=== PATIENT | female | born 1980 | race African-American/Black ===

== ENCOUNTER 2017-06-26 09:46 | Emergency (ER) | payer OTHER ==
[2017-06-26] MEDS ORDERED: FAMOTIDINE 20 MG/50 ML IVPB 20 MG/50 ML MG IVPB ONE ×2 (09:58→10:07)
[2017-06-26] MEDS ORDERED: MAG HYDROX/AL HYDROX/SIMETH 30 ML UNIT-DOSE CUP PO ONE (09:58)
[2017-06-26] MEDS ORDERED: ONDANSETRON 4 MG/2 ML VIAL IVPB ONE (09:58)
--- NOTE | 2017-06-26 10:06 | PDOC ---
History of Present Illness - General Chief Complaint: Chest Pain Stated Complaint: CHEST PAIN SINCE YESTERDAY Time Seen by Provider: 06/26/17 09:57 - History of Present Illness Initial Comments: 06/26/17 10:03 37 F with no PMH presents to ER with chest pressure since last night. Pt states that she first noticed it around 8 or 9 PM. She initially ignored it, thinking it was gas. Pt went to bed, and when she awoke, the pain persisted. It is constant, non-radiating pain in the middle of her chest. She denies SOB but states that when she breathes deeply she feels it more. Not worsened with exertion. Pt states that it is also worse with bending forward and palpation of her stomach. Pt denies leg swelling. Denies OCP use. Denies recent travel/ immobilization. No h/o DVT/PE. No F/C/cough. Past History - Past Medical History Allergies/Adverse Reactions: Allergies Allergy/AdvReac Type Severity Reaction Status Date / Time No Known Drug Allergies Allergy Verified 06/26/17 09:52 Home Medications: Ambulatory Orders NK [No Known Home Medication] 06/26/17 Anemia: No Asthma: No Cancer: No Cardiac Disorders: No CVA: No COPD: No CHF: No Dementia: No Diabetes: No GI Disorders: Yes (ACID REFUX) Disorders: No HTN: No Hypercholesterolemia: No Liver Disease: No Seizures: No Thyroid Disease: No - Surgical History Abdominal Surgery: No Appendectomy: No Cardiac Surgery: No Cholecystectomy: No Lung Surgery: No Neurologic Surgery: No Orthopedic Surgery: No - Reproductive History (#): 5 Para: 1 Cervical CA: No Dysfunctional Uterine Bleeding: No Ectopic : No Endometrial CA: No Polycystic Ovaries: No Therapeutic (s) & number: No Tubal Ligation: No Spontaneous : 3 - Immunization History Immunization Up to Date: Yes - Suicide/Smoking/Psychosocial Hx Smoking Status: No Smoking History: Never smoked Years of Tobacco Use: 0 Have you smoked in the past 12 months: No Number of Cigarettes Smoked Daily: 0 Cigars Per Day: 0 Hx Alcohol Use: No Drug/Substance Use Hx: No Substance Use Type: None Hx Substance Use Treatment: No Cardiac Specific PMH - Complaint Specific PMHX Pacemaker: No Review of Systems - Review of Systems Comments:: 06/26/17 10:07 "GENERAL/CONSTITUTIONAL: No fever or chills. No weakness. HEAD, EYES, EARS, NOSE AND THROAT: No change in vision. No ear pain or discharge. No sore throat. CARDIOVASCULAR: + Chest pressure, no shortness of breath. RESPIRATORY: No cough, wheezing, or hemoptysis. GASTROINTESTINAL: No nausea, vomiting, diarrhea or constipation. GENITOURINARY: No dysuria, frequency, or change in urination. MUSCULOSKELETAL: No joint or muscle swelling or pain. No neck or back pain. SKIN: No rash NEUROLOGIC: No headache, vertigo, loss of consciousness, or change in strength/ sensation. ENDOCRINE: No increased thirst. No abnormal weight change. HEMATOLOGIC/LYMPHATIC: No anemia, easy bleeding, or history of blood clots. ALLERGIC/IMMUNOLOGIC: No hives or skin allergy. " *Physical Exam - Vital Signs Last Vital Signs Temp Pulse Resp BP Pulse Ox 98.5 F 64 16 109/77 98 06/26/17 09:47 06/26/17 10:30 06/26/17 10:30 06/26/17 10:30 06/26/17 10:30 - Physical Exam Comments: 06/26/17 10:07 "GENERAL: Awake, alert, and fully oriented, in no acute distress HEAD: No signs of trauma EYES: PERRLA, EOMI, sclera anicteric, conjunctiva clear ENT: Auricles normal inspection, hearing grossly normal, nares patent, oropharynx clear without exudates. Moist mucosa NECK: Nontender, no stepoffs, Normal ROM, supple, no lymphadenopathy, JVD, or masses LUNGS: Breath sounds equal, clear to auscultation bilaterally. No wheezes, and no crackles HEART: Regular rate and rhythm, normal S1 and S2, no murmurs, rubs or gallops ABDOMEN: + epigastric TTP. No guarding, no rebound. No masses EXTREMITIES: Normal range of motion, no edema. No clubbing or cyanosis. No cords, erythema, or tenderness NEUROLOGICAL: Cranial nerves II through XII intact. 5/5 strength and sensation in all extremities, Normal speech, normal gait SKIN: Warm, Dry, normal turgor, no rashes or lesions noted. " Heart Score/ECG Review - History History: Slightly suspicious - Electrocardiogram EKG: Normal - Age Age: </= 45 - Risk Factors Risk Factors Heart Score: Yes Positive family hx of cardiac disease Based on the list above the patient has:: 1-2 risk factors - Troponin Troponin: </= normal limit - Score Heart Score - Total: 1 - ECG Impressions Comment:: 06/26/17 10:14 NSR, no BEE/STDs, no TWIs, axis wnl, intervals wnl, rate 72 ED Treatment Course - LABORATORY CBC & Chemistry Diagram: 06/26/17 10:35 06/26/17 10:35 - ADDITIONAL ORDERS Additional order review: 06/26/17 10:35 RBC 4.00 MCV 87.1 MCHC 33.5 RDW 13.0 MPV 8.8 Neutrophils % 55.9 Lymphocytes % 37.1 Monocytes % 5.4 Eosinophils % 1.4 Basophils % 0.2 - RADIOLOGY Radiology Studies Ordered: Category Date Time Status CHEST PA & LAT [RAD] Stat Radiology 06/26/17 09:58 Completed - Medications Given in the ED: ED Medications Discontinued Medications Generic Name Dose Route Start Last Admin Trade Name Freq PRN Reason Stop Dose Admin Al Hydroxide/Mg Hydroxide 30 ml 06/26/17 09:58 06/26/17 10:17 Mylanta Oral Suspension - PO 06/26/17 09:59 30 ml ONCE ONE Administration Famotidine/Sodium Chloride 20 mg in 50 mls @ 100 mls/hr 06/26/17 09:58 10:13 Pepcid 20 Mg Premixed Ivpb - IVPB 06/26/17 10:27 100 mls/hr ONCE ONE Administration Ondansetron HCl 4 mg 06/26/17 09:58 06/26/17 10:18 Zofran Injection IVPB 06/26/17 09:59 4 mg ONCE ONE Administration Medical Decision Making - Medical Decision Making 06/26/17 10:08 37 F with chest pressure since last night. Exam notable for epigastric TTP. Possible gastritis vs GERD. ACS unlikely as pain is not exertional. PE unlikely as pt with no DVT/PE risk factors and normal vitals. PERC score 0. - Labs, trop - CXR - GI cocktail 06/26/17 12:36 Labs, EKG, CXR all wnl. Pt reassessed - feels somewhat better with GI meds. Pt well appearing, vitals normal, clinically stable for DC I discussed the physical exam findings, ancillary test results and final diagnoses with the patient. I answered all of the patient's questions. The patient was satisfied with the care received and felt comfortable with the discharge plan and treatment plan. The patient agrees to follow up with the primary care physician within 24-72 hours. *DC/Admit/Observation/Transfer Diagnosis at time of Disposition: Chest pain - Discharge Dispostion Disposition: HOME Condition at time of disposition: Stable - Referrals - Patient Instructions Printed Discharge Instructions: DI for Atypical Chest Pain Additional Instructions: You should follow up with a electrician station assistant as soon as possible to have your heart fully evaluated. Even though the tests today were normal, we cannot definitively rule out all heart disease. This is especially important given your family history of heart attacks. If you experience worsening chest pain, shortness of breath, or any other concerning symptoms, return to the ER immediately. Otherwise, follow up with your primary doctor within 1 week. - Post Discharge Activity - Attestations Physician Attestion: 06/26/17 12:36 I, Dr. Evelio Cope MD, attest that this document has been prepared under my direction and personally reviewed by me in its entirety. I further attest, that it accurately reflects all work, treatment, procedures and medical decision -making performed by me.
[2017-06-26 10:07] VITALS: TEMP 98.5; BMI 26.1
[2017-06-26] MEDS ORDERED: MAG HYDROX/AL HYDROX/SIMETH 30 ML UNIT-DOSE CUP ONE (10:07)
[2017-06-26] MEDS ORDERED: ONDANSETRON 4 MG/2 ML VIAL ONE (10:07)
[2017-06-26 10:55] LABS: BASO % 0.2 % (0-2.0); EOS % 1.4 % (0-4.5); HEMATOCRIT 34.8 % (32.4-45.2); HEMOGLOBIN 11.7 GM/dl (10.7-15.3); LYMPH % 37.1 % (8-40); MCH 29.2 pg (25.7-33.7); MCHC 33.5 g/dl (32.0-36.0); MEAN CELL VOLUME 87.1 fl (80-96); MEAN PLT VOLUME 8.8 fl (7.5-11.1); MONO % 5.4 % (3.8-10.2); NEUT % 55.9 % (42.8-82.8); PLATELET COUNT 246 K/MM3 (134-434); WHITE BLOOD COUNT 7.7 K/mm3 (4.0-10.8)
[2017-06-26 11:11] LABS: ALBUMIN 3.8 g/dl (3.5-5.0); ALK PHOS 55 U/L (32-92); ANION GAP 3 (8-16); BILIRUBIN,TOTAL 0.7 mg/dl (0.2-1.0); BLOOD UREA NITROGEN 13 mg/dl (7-18); CALCIUM 8.7 mg/dl (8.4-10.2); CHLORIDE 103 mmol/L (98-107); CO2 26 mmol/L (22-28); CREATININE 0.7 mg/dl (0.6-1.3); GLUCOSE,RANDOM 86 mg/dl (74-106); SGOT/AST 15 U/L (10-42); SGPT/ALT 11 U/L (10-40); SODIUM 132 mmol/L (136-145); TOT PROT 7.1 g/dl (6.4-8.3)
[2017-06-26 12:01] VITALS: BP 109/77; PULSE 64
--- NOTE | 2017-06-26 15:01 | EKG ---
Test Reason : Blood Pressure : / mmHG Vent. Rate : 072 BPM Atrial Rate : 072 BPM P-R Int : 146 ms QRS Dur : 080 ms QT Int : 376 ms P-R-T Axes : 060 072 049 degrees QTc Int : 411 ms NORMAL SINUS RHYTHM NORMAL ECG WHEN COMPARED WITH ECG OF 15-APR-2015 08:19, NO SIGNIFICANT CHANGE WAS FOUND Confirmed by JIM NIXON MD ([id number]) on 06/26/2017 3:01:03 PM Referred By: ADRIANA LAMBERT Confirmed By:JIM NIXON MD
== END 2017-06-26 13:01 | disposition home or self-care (01) ==
LOC: FER 09:46
PROC: 3E033GC Introduction of Other Therapeutic Substance into Peripheral Vein, Percutaneous Approach (ICD-10-PCS; principal; 2017-06-26)
DX: R07.89 Other chest pain (principal)
CPT/HCPCS: 36415; 71046-TC; 80053; 82550; 83690; 84484; 84703; 85025; 93005; 99283-25

== ENCOUNTER 2018-11-05 11:20 | Emergency (ER) | payer OTHER | END 2018-11-05 12:01 | disposition home or self-care (01) | LOC: JERFT 11:20 ==

== ENCOUNTER 2020-01-20 08:38 | Emergency (ER) | payer OTHER ==
[2020-01-20] MEDS ORDERED: ONDANSETRON 4 MG/2 ML VIAL IVPUSH ONE (08:40)
[2020-01-20] MEDS ORDERED: SODIUM CHLORIDE 0.9% 1000 ML INFUS.BAG IV ONE (08:40)
[2020-01-20 08:46] VITALS: BP 130/89; PULSE 76; TEMP 98.3; BMI 24.4
[2020-01-20] MEDS ORDERED: ONDANSETRON 4 MG/2 ML VIAL ONE (08:47)
[2020-01-20 09:24] LABS: HCG,QUALITATIVE URINE Negative
[2020-01-20 10:08] LABS: BASO % 0.9 % (0-2.0); EOS % 1.5 % (0-4.5); HEMOGLOBIN 11.3 GM/dl (10.7-15.3); LYMPH % 33.7 % (8-40); MCH 27.8 pg (25.7-33.7); MCHC 31.4 g/dl (32.0-36.0); MEAN CELL VOLUME 88.5 fl (80-96); MEAN PLT VOLUME 8.8 fl (7.5-11.1); MONO % 5.8 % (3.8-10.2); NEUT % 58.1 % (42.8-82.8); PLATELET COUNT 301 K/MM3 (134-434); RBC 4.06 M/mm3 (3.60-5.2); RDW 13.1 % (11.6-15.6); WHITE BLOOD COUNT 8.7 K/mm3 (4.0-10.8)
[2020-01-20 10:14] LABS: ALBUMIN 3.9 g/dl (3.4-5.0); BILIRUBIN,TOTAL 0.6 mg/dl (0.2-1); CALCIUM 8.8 mg/dl (8.5-10); CREATININE 0.7 mg/dl (0.55-1.3); POTASSIUM 4.5 mmol/L (3.5-5.1); TOT PROT 7.3 g/dl (6.4-8.2)
[2020-01-20 10:25] LABS: EPITHELIAL CELLS FEW /hpf
--- NOTE | 2020-01-20 10:56 | PDOC ---
History of Present Illness - General Chief Complaint: Nausea/Vomiting Stated Complaint: VOMITING Time Seen by Provider: 01/20/20 08:41 History Source: Patient Exam Limitations: No Limitations - History of Present Illness Initial Comments: 01/20/20 10:52 39-year-old female no past medical history here today with nausea vomiting since last night. Has had several episodes of nonbloody nonbilious emesis. She works currently at [employer] denies any known sick contacts has kids at home denies any sick contacts in them as well. No fevers no chills has mild lower abdominal pain only worse with vomiting. Was recently treated for UTI finished a course of antibiotics approximately 2 weeks ago has been having urinary frequency but denies any urgency stated that she just started her menstruation today No cough no shortness of breath no chest pain no other curren t complaints no fever no chills. Denies diarrhea or any other change to her bowel habits only surgical history is prior myomectomy, uterus. Past History - Medical History Allergies/Adverse Reactions: Allergies Allergy/AdvReac Type Severity Reaction Status Date / Time No Known Drug Allergies Allergy Verified 01/20/20 08:39 Home Medications: Ambulatory Orders NK [No Known Home Medication] 06/26/17 Anemia: No Asthma: No Cancer: No Cardiac Disorders: No CVA: No COPD: No CHF: No Dementia: No Diabetes: No GI Disorders: Yes (ACID REFUX) Disorders: No HTN: No Hypercholesterolemia: No Liver Disease: No Seizures: No Thyroid Disease: No - Surgical History Abdominal Surgery: No Appendectomy: No Cardiac Surgery: No Cholecystectomy: No Lung Surgery: No Neurologic Surgery: No Orthopedic Surgery: No - Reproductive History Is Patient Now?: No (#): 5 Para: 1 Cervical CA: No Dysfunctional Uterine Bleeding: No Ectopic : No Endometrial CA: No Polycystic Ovaries: No Therapeutic (s) & number: No Tubal Ligation: No Spontaneous : 3 - Immunization History Immunization Up to Date: Yes - Psycho-Social/Smoking History Smoking Status: No Smoking History: Never smoked Years of Tobacco Use: 0 Have you smoked in the past 12 months: No Number of Cigarettes Smoked Daily: 0 Cigars Per Day: 0 Information on smoking cessation initiated: No - Substance Abuse Hx (Audit-C & DAST Scrn) How often the patient has a drink containing alcohol: Never Score: In Men: 4 or > Positive; In Women: 3 or > Positive: 0 Screen Result (Pos requires Nsg. Audit-10AR): Negative In the last yr the pt used illegal drug/Rx for NonMed reason: No Score: Yes response is considered Positive: 0 Screen Result (Positive result requires Nsg. DAST-10): Negative Review of Systems - Review of Systems Constitutional: No: Chills, Fever Respiratory: No: Cough, Orthopnea, Shortness of Breath Cardiac (ROS): No: Chest Pain ABD/GI: Yes: Nausea, Vomiting. No: Abdominal Distended, Constipated, Diarrhea : Yes: Frequency. No: Burning, Dysuria, Discharge Musculoskeletal: No: Back Pain, Joint Pain All Other Systems: Reviewed and Negative *Physical Exam - Vital Signs Last Vital Signs Temp Pulse Resp BP Pulse Ox 98.3 F 76 20 130/89 100 01/20/20 08:39 01/20/20 08:39 01/20/20 08:39 01/20/20 08:39 01/20/20 08:39 - Physical Exam 01/20/20 10:55 Awake alert no acute distress lungs are clear bilaterally heart is regular with no murmurs rubs or gallops abdomen is soft there is mild left lower quadrant tenderness palpation mild suprapubic tenderness no CVA tenderness extremities are warm and well-perfused skin is warm and dry neurologic patient is awake alert and oriented x3 ED Treatment Course - LABORATORY CBC & Chemistry Diagram: 01/20/20 09:03 01/20/20 09:03 - ADDITIONAL ORDERS Additional order review: Laboratory Results 01/20/20 01/20/20 09:03 09:03 Sodium 135 L Potassium 4.5 Chloride 104 Carbon Dioxide 23 Anion Gap 8 BUN 16.0 Creatinine 0.7 Est GFR (CKD-EPI)AfAm 124.73 Est GFR (CKD-EPI)NonAf 107.62 Random Glucose 87 Calcium 8.8 Total Bilirubin 0.6 AST 16 ALT 14 Alkaline Phosphatase 54 Total Protein 7.3 Albumin 3.9 Urine Color New Home Urine Appearance Clear Urine pH 5.0 Urine Protein Negative Urine Glucose (UA) Negative Urine Ketones Negative Urine Blood 3+ H Urine Nitrite Negative Urine Bilirubin Negative Urine Urobilinogen 0.2 Ur Leukocyte Esterase Negative Urine RBC 2-5 Urine WBC 0-2 Ur Transition Epith Cell Few Urine HCG, Qual Negative 01/20/20 09:03 RBC 4.06 MCV 88.5 MCHC 31.4 L RDW 13.1 MPV 8.8 Neutrophils % 58.1 Lymphocytes % 33.7 Monocytes % 5.8 Eosinophils % 1.5 Basophils % 0.9 - RADIOLOGY Radiology Studies Ordered: Category Date Time Status ABDOMEN & PELVIS CT WITH CONTR [CT] Stat CT Scan 01/20/20 09:00 Ordered - Medications Given in the ED: ED Medications Discontinued Medications Generic Name Dose Route Start Last Admin Trade Name Pia PRN Reason Stop Dose Admin Ondansetron HCl 4 mg 01/20/20 08:40 01/20/20 09:24 Zofran Injection IVPUSH 01/20/20 08:41 4 mg ONCE ONE Administration Sodium Chloride 1,000 ml 01/20/20 08:40 01/20/20 09:24 Normal Saline - IV 01/20/20 08:41 1,000 ml ONCE ONE Administration Medical Decision Making - Medical Decision Making 01/20/20 10:55 39-year-old female no past medical history here today with mild lower quadrant pain nausea and vomiting since last night. Differential includes viral gastroenteritis diverticulitis UTI pyelonephritis plan CT abdomen positive basic labs IV fluids and Zofran 01/20/20 11:36 Patient is feeling better at this time is refusing her CAT scan explained the concerns for diverticulitis would like to go home encouraged to return for any persistent vomiting fevers worsening pain or any other concerns labs were reviewed with the patient and are unremarkable UA is negative for any UTI she is attributing her symptoms to bad food encouraged to return for any other symptoms. 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 Your labs are unremarkable however for persistent vomiting fevers worsening pain or any concerns he should return to the ED immediately. You should also follow-up with your primary care doctor tomorrow or within the next 48 hours. Stick to bland foods and hydration - Post Discharge Activity
== END 2020-01-20 11:44 | disposition home or self-care (01) ==
LOC: FER 08:38
PROC: 3E033NZ Introduction of Analgesics, Hypnotics, Sedatives into Peripheral Vein, Percutaneous Approach (ICD-10-PCS; principal; 2020-01-20)
DX: R11.10 Vomiting, unspecified (principal)
CPT/HCPCS: 36415; 80053; 81003; 81015; 84703; 85025; 99284-25

== ENCOUNTER 2020-06-02 15:44 | Emergency (ER) | payer OTHER ==
[2020-06-02 15:50] VITALS: BP 126/78; PULSE 87; TEMP 98.8; BMI 24.4
[2020-06-02] MEDS ORDERED: ACETAMINOPHEN 500 MG TABLET (FP) PO ONE (15:56)
[2020-06-02] MEDS ORDERED: ONDANSETRON *ODT* 4 MG TABLET SL ONE (15:56)
[2020-06-02] MEDS ORDERED: ONDANSETRON *ODT* 4 MG TABLET ONE (16:00)
[2020-06-02] MEDS ORDERED: ACETAMINOPHEN 325 MG TABLET (FP) ONE (16:00)
== END 2020-06-02 16:44 | disposition home or self-care (01) ==
LOC: FER 15:44
DX: S09.90XA Unspecified injury of head, initial encounter (principal)
CPT/HCPCS: 70450-TC; 99284-25; Q0162